=== PATIENT | male | born 1975 | race Caucasian/White ===

== ENCOUNTER 2025-03-03 09:19 | Inpatient (IN) ==
--- NOTE | 2025-03-03 09:37 | Emergency Department Note ---
History of Present Illness General Chief complaint: Chest Pain Stated complaint: CHEST PAIN Time Seen by Provider: 03/03/25 09:26 History of Present Illness Maximum Pain Intensity: 2 This is a 49-year-old male with history of COPD that presents to the emergency department via EMS with complaints of "chest pain". The patient notes earlier today he had gotten out of his vehicle feeling a discomfort in the central chest area that radiated through the shoulders into the bilateral arms. He notes that then he felt like his heart was racing and that was the last thing he remembered as he then woke up on the ground. Patient denies any history of GA or PE. Patient did have recent pulmonary testing in [place] with a history of COPD. He is scheduled for a stress test this coming Thursday but has not had the stress test as of yet. Notes allergies to penicillin, nitro and shellfish. He notes he can tolerate IV contrast for CAT scans without issue. Patient and route received full dose aspirin and total as well as IV morphine. Patient notes that he cannot have nitroglycerin. Home Medications Medication Instructions Recorded Confirmed Type albuterol sulfate 90 mcg/actuation 2 puff inhalation Q6H PRN sob 10/13/23 03/03/25 History aerosol inhaler sumatriptan succinate 6 mg/0.5 mL 6 mg subcut UD PRN cluster 10/13/23 03/03/25 History subcutaneous pen injector headaches atorvastatin 10 mg tablet 10 mg PO HS 03/03/25 03/03/25 History fluticasone fur. 100 mcg-umeclid 1 inh inhalation QAM 03/03/25 03/03/25 History 62.5 mcg-vilant 25 mcg inhalat.powder (Trelegy Ellipta) omeprazole 40 mg capsule,delayed 40 mg PO DAILY #30 caps 03/03/25 Rx release Allergies Allergy/AdvReac Type Severity Reaction Status Date / Time Penicillins Allergy Severe Anaphylaxis Verified 03/03/25 11:57 nitroglycerin Allergy Mild Tachycardia Verified 12/02/23 09:09 shellfish derived Allergy Mild Hives Verified 12/02/23 09:09 Past Med/Surg History Problem List (Updated 03/03/25 @ 18:13 by Jose Candelario DO) Vasovagal syncope Degenerative disc disease, lumbar Abdominal lymphadenopathy Mass of stomach Atypical chest pain Abnormal computed tomography angiography (CTA) Abnormal chest CT (Acute) Syncope (Acute) Chest pain (Acute) Abnormal CT of the abdomen GERD (gastroesophageal reflux disease) Insomnia COPD (chronic obstructive pulmonary disease) Epigastric pain Diarrhea Medical History History of COVID-19 (01/2022) x 13 days, not hospitalized, resolved Insomnia History of cluster headache COPD (chronic obstructive pulmonary disease) Hx of renal calculi Hx of colonic polyp GERD (gastroesophageal reflux disease) Surgical History Hx of colonoscopy with polypectomy Hx of oral surgery dentures H/O hernia repair bilateral inguinal Family History Other Adopted Social History Smoking Status: Current every day smoker Tobacco Type: Cigarettes Age Started Using Tobacco: 9; Cigarettes Per Day: 20; Second Hand Exposure: No; Do You Dip or Chew Tobacco: No; Hx Alcohol Use: No Hx Substance Use: No Preferred Language: Jordanian Communication Ability: Effective [place] Farmer Required: No Beliefs That Will Affect Care: None Current Living Situation: Spouse Current Living Situation Comment: lives with , roommate and person cared for by patient Feels Safe at Home: Yes Safety Concerns: Feels Safe At This Time Assistive Devices: Glasses Review of Systems A total of 10 systems reviewed and were otherwise negative Physical Exam Vital Signs Vital Signs - 24 hr 03/03/25 09:28 03/03/25 09:36 03/03/25 09:55 Temperature 36.7 C Temperature Source Oral Pulse Rate 83 74 Pulse Rate [Left Finger] Respiratory Rate 15 Respiratory Effort / Characteristics Respiratory Depth Blood Pressure 134/97 Blood Pressure [Left Arm] Blood Pressure Mean 109 Blood Pressure Mean [Left Arm] Pulse Oximetry 96 97 Oxygen Delivery Method Room Air Room Air Sepsis Recent Fever Within 48 Hours No Sepsis New/Unexplained Change in Mental Status N/A Sepsis Action Taken by Nursing No Action Required 03/03/25 11:36 03/03/25 11:36 Temperature Temperature Source Pulse Rate Pulse Rate [Left Finger] 76 Respiratory Rate 16 Respiratory Effort / Characteristics Non-Labored Spontaneous Respiratory Depth Normal Blood Pressure Blood Pressure [Left Arm] 142/97 H Blood Pressure Mean Blood Pressure Mean [Left Arm] 112 Pulse Oximetry 98 98 Oxygen Delivery Method Room Air Room Air Sepsis Recent Fever Within 48 Hours Sepsis New/Unexplained Change in Mental Status Sepsis Action Taken by Nursing VITAL SIGNS - Vital signs and nursing notes were reviewed. Stable and afebrile. GENERAL -49-year-old male appearing his stated age who is in no acute distress. Communicates well with provider and answers questions appropriately. SKIN - Without rashes. No meningeal or petechial rash. HEAD - NC/AT. EYES - PERRL with EOMI bilaterally. Sclera anicteric. EARS - No deformities of external structures noted on gross examination bilaterally. NOSE - Midline and without cyanosis. No epistaxis or purulent drainage noted. MOUTH/OROPHARYNX - Without perioral cyanosis. NECK - Neck with FROM. No nuchal rigidity. LUNGS - CTA CARDIAC - RRR ABDOMEN - Abdominal contour normal without pulsations or visible masses. BS normoactive all four quadrants. No tenderness, palpable masses, hepatosplenomegaly, or ascites noted. EXTREMITIES - No clubbing or peripheral cyanosis. +5/5 strength noted in UE/LE bilaterally. NEUROLOGIC - Cranial nerves II through XII grossly intact. PSYCH -alert, oriented and pleasant on exam Course Administered Medications Discontinued Medications Ioversol (Optiray 320 125ml) 118 ml IV ONCE ONE Stop: 03/03/25 10:26 Last Admin: 03/03/25 10:26 Dose: 118 ml Documented By: SWEETIE Ioversol (Optiray 320 100ml) 94 ml IV ONCE ONE Stop: 03/03/25 13:52 Last Admin: 03/03/25 13:52 Dose: 94 ml Documented By: PRISCILLA Medical Decision Making Laboratory Data 03/03/25 09:27 03/03/25 09:27 Lab Results 03/03/25 03/03/25 03/03/25 Range/Units 09:27 09:55 12:05 WBC 6.08 (4.8-10.8) K/ul RBC 4.87 (4.70-6.10) M/uL Hgb 14.8 (14.0-18.0) g/dl POC Hgb 15.6 (14.0-18.0) g/dl Hct 44.1 (42.0-52.0) % POC Hct 46 (42-52) % MCV 90.6 (80.0-100.0) fL MCH 30.4 (25.0-34.0) pg MCHC 33.6 (32.0-36.0) g/dL RDW Std Deviation 44.7 (36.4-46.3) fL RDW Coeff of Cate 13.4 (11.5-14.5) % Plt Count 250 (130-400) K/uL MPV 10.4 (9.4-12.4) fL Immature Gran % (Auto) 0.3 % Neut % (Auto) 55.6 % Lymph % (Auto) 28.0 % Casey % (Auto) 13.7 % Eos % (Auto) 2.1 % Baso % (Auto) 0.3 % Neut # (Auto) 3.38 (1.40-6.50) K/uL Lymph # (Auto) 1.70 (1.20-3.40) K/uL Casey # (Auto) 0.83 H (0.11-0.59) K/uL Eos # (Auto) 0.13 (0.00-0.50) K/uL Baso # (Auto) 0.02 (0.00-0.20) K/uL Immature Gran # (Auto) 0.02 (0.01-0.20) K/uL PT 10.6 (9.0-12.0) Seconds INR 1.0 (0.9-1.1) APTT 27 (21-31) Seconds PTT Ratio 1.0 POC Sodium 141 (135-144) mmol/L Sodium 139 (136-145) mmol/L POC Potassium 3.8 (3.3-5.0) mmol/L Potassium 3.8 (3.5-5.1) mmol/L POC Chloride 105 (101-112) mmol/L Chloride 105 (98-107) mmol/L Carbon Dioxide 26 (21-32) mmol/L POC Total CO2 25 (24-31) mmol/L Anion Gap 8 (3-11) POC Anion Gap 16.0 (16-25) mmol/L POC BUN 8 (7-18) mg/dl BUN 9 (6-23) mg/dl Creatinine 0.97 (0.6-1.4) mg/dl POC Creatinine 1.1 (0.6-1.3) mg/dl Est Cr Clr Drug Dosing 110.7 ml/min eGFR 95.11 BUN/Creatinine Ratio 9.3 L (10-20) Glucose 127 H (70-99(Fasting)) mg/dl POC Glucose (other) 100 H (70-99) mg/dl Calcium 9.7 (8.6-10.3) mg/dl POC Ioniz Calcium Matty 1.19 (1.12-1.32) mmol/l Magnesium 2.2 (1.7-2.4) mg/dl Total Bilirubin 0.5 (0.2-1.0) mg/dl AST 28 (13-39) U/L ALT 40 (7-52) U/L Alkaline Phosphatase 89 (34-104) U/L Troponin I High Sens 3.0 3.7 (0-20) pg/ml Total Protein 8.0 (6.0-8.3) gm/dl Albumin 4.2 (3.4-5.0) gm/dl Globulin 3.8 (2.5-4.0) gm/dl Albumin/Globulin Ratio 1.1 (0.9-2) TSH 2.531 (0.300-4.500) uIu/ml Lyme Disease Screen Positive H (Negative) Lyme Tier 2 IgG Confirm Positive H (Negative) Lyme Tier 2 IgM Confirm Negative (Negative) Imaging Data Radiologist's Impression: Chest CTA 03/03/25 09:36 CT ANGIOGRAM OF THE CHEST CLINICAL HISTORY: Chest pain. Syncope. COMPARISON STUDY: Chest CT dated 05/18/2024. TECHNIQUE: Following the IV administration of 118 cc of Optiray 320, CT angiogram of the chest was performed from the upper abdomen to the thoracic inlet utilizing the pulmonary embolus protocol. Images are reviewed in the axial, sagittal, and coronal planes. 3-D MIPS images are created and assessed. IV contrast was administered without complication. A dose lowering technique was utilized adhering to the principles of ALARA. CT DOSE: 861.27 mGy.cm FINDINGS: Thyroid: Imaged portions of the thyroid gland are normal in size and attenuation. Thoracic aorta: The thoracic aorta is normal in caliber and demonstrates standard 3-vessel arch anatomy. No dissection is seen. Pulmonary vasculature: The pulmonary trunk is normal in caliber. There are no filling defects identified in main, lobar, or segmental pulmonary branches to suggest pulmonary embolus. Heart: The heart is mildly enlarged and without pericardial effusion. Lungs and pleural spaces: There is emphysematous change. The trachea and central airways are clear. No airspace consolidation or pleural effusion is identified. Diffuse peribronchial thickening suggests bronchitis/reactive airway disease. A 4 mm pleural-based nodule in the left lower lobe on image #116 is unchanged. Mediastinum: There is no mediastinal lymphadenopathy. Keren: Clear. Axillae: There is no axillary lymphadenopathy. Upper abdomen: Again seen is a slightly hyperdense 2.7 x 2.3 cm nodule or node along the lesser curvature of the stomach on axial image #40. There is mild surrounding infiltration, as well as adjacent lymph nodes in the surrounding upper abdomen/gastrohepatic space. These measure up to 1.2 cm as seen on images #8, #16, #21, #23, #27, and #35. There is a 3 mm nonobstructing left renal calculus. The liver appears steatotic. Skeletal structures: No lytic or blastic bony lesions are seen. IMPRESSION: 1. There is no evidence of pulmonary embolus in the main, lobar, or segmental pulmonary arteries. 2. There is a 2.7 cm ovoid nodule along the lesser curvature of the stomach with mild surrounding inflammation and several mildly enlarged adjacent upper abdominal lymph nodes. This is highly suspicious for a neoplastic process, and could represent adenopathy or possibly an exophytic gastric lesion such as a GIST. GI evaluation and tissue sampling is recommended. 3. Cardiomegaly and emphysema. 4. No airspace consolidation or pleural effusion is identified. 5. Additional findings as above. ACT 112: Positive. There are findings on this exam that require communication between the performing entity and the patient following Patient Test Result Information Act ([place] Act 112) guidelines. Electronically signed by: Scott Christine M.D. 03/03/2025 10:47 AM MDM Narrative Patient was seen and evaluated as above in room A12a. Review was performed of nursing notes and vital signs. I did review pertinent previous visits and patient history. After obtaining a thorough history and physical examination the above work up was performed. Patient presents to us today with the above symptoms. He is clinically well-appearing and nontoxic on examination. Vital signs are stable. EKG reveals normal sinus rhythm at a rate of 80 bpm. QTc 422. QRS 90. No ST elevation on this rhythm tracing. Options of care were discussed with the patient. IV access was established per labs were drawn. There is no leukocytosis or concerning anemia. Coags normal. No evidence of kidney or liver failure. Troponin x 2 negative. CTA of the chest as above and without evidence of PE. There is however an ovoid nodule noted which will require further workup. Noting the patient's chest pain today with syncopal event to believe that further evaluation and management in the inpatient setting is warranted. Case discussed with the hospitalist service. Please refer to further documentation regarding his stay. Of note, Lyme screen was positive. Will keep the patient on telemetry to evaluate for any blocks. Please refer to further documentation regarding the patient stay. GCS: 15 In the evaluation and treatment of this patient the following differential diagnoses were entertained: GA, PE, dissection, pericarditis, vasovagal syncope, among others. Impression & Plan Chest pain, Syncope, Abnormal chest CT Discharge Plan Visit Data Chief Complaint: Chest Pain Stated Complaint: CHEST PAIN ED Provider: Immanuel Prabhakar ED Midlevel Provider: Jason Garcia Discharge Problem: Chest pain, Syncope, Abnormal chest CT Patient Disposition: Admitted As Inpatient Condition: Good Discharge Instructions Interventions: ED Discharge Assessment Last Done: 03/03/25 13:17
[2025-03-03 10:08] LABS: Hematocrit (blood only) 44.1 % (42.0-52.0); Hemoglobin 14.8 g/dl (14.0-18.0); Immature Granulocytes # (auto) 0.02 K/uL (0.01-0.20); Immature Granulocytes % (auto) 0.3 %; Mean Corpuscular Hemoglobin 30.4 pg (25.0-34.0); Mean Corpuscular Volume 90.6 fL (80.0-100.0); Platelet Count 250 K/uL (130-400); RDW Standard Deviation 44.7 fL (36.4-46.3); Red Blood Count 4.87 M/uL (4.70-6.10); White Blood Count 6.08 K/ul (4.8-10.8)
[2025-03-03 10:26] LABS: Alanine Aminotransferase 40.0 U/L (7-52); Albumin Globulin Ratio 1.1 (0.9-2); Albumin Level 4.2 gm/dl (3.4-5.0); Alkaline Phosphatase 89.0 U/L (34-104); Anion Gap 8.0 (3-11); Bilirubin,Total 0.5 mg/dl (0.2-1.0); Blood Urea Nitrogen 9.0 mg/dl (6-23); Calcium 9.7 mg/dl (8.6-10.3); Carbon Dioxide 26.0 mmol/L (21-32); Chloride 105.0 mmol/L (98-107); Creatinine Clr Calc Pharmacy 110.7 ml/min; Globulin 3.8 gm/dl (2.5-4.0); Glucose 127.0 mg/dl (70-99(Fasting)); Magnesium 2.2 mg/dl (1.7-2.4); Potassium 3.8 mmol/L (3.5-5.1); Sodium 139.0 mmol/L (136-145); Total Protein 8.0 gm/dl (6.0-8.3)
[2025-03-03] MEDS: OPTIRAY 320 125ml IV ONE (10:26)
[2025-03-03 10:37] LABS: INR 1.0 (0.9-1.1); Partial Thromboplastin Time 27 Seconds (21-31); Prothrombin Time 10.6 Seconds (9.0-12.0)
[2025-03-03 10:41] LABS: Thyroid Stimulating Hormone 2.531 uIu/ml (0.300-4.500)
--- NOTE | 2025-03-03 10:48 | CT Scan Report ---
CT ANGIOGRAM OF THE CHEST CLINICAL HISTORY: Chest pain. Syncope. COMPARISON STUDY: Chest CT dated 05/18/2024. TECHNIQUE: Following the IV administration of 118 cc of Optiray 320, CT angiogram of the chest was pe rformed from the upper abdomen to the thoracic inlet utilizing the pulmonary embolus protocol. Images are reviewed in the axial, sagittal, and coronal planes. 3-D MIPS images are created and assessed. I V contrast was administered without complication. A dose lowering technique was utilized adhering to the principles of ALARA. CT DOSE: 861.27 mGy.cm FINDINGS: Thyroid: Imaged portions of the thyroid gland are normal in size and attenuation. Thoracic aorta: The thoracic aorta is normal in caliber and demonstrates standard 3-vessel arch anato my. No dissection is seen. Pulmonary vasculature: The pulmonary trunk is normal in caliber. There are no filling defects identif ied in main, lobar, or segmental pulmonary branches to suggest pulmonary embolus. Heart: The heart is mildly enlarged and without pericardial effusion. Lungs and pleural spaces: There is emphysematous change. The trachea and central airways are clear. N o airspace consolidation or pleural effusion is identified. Diffuse peribronchial thickening suggests bronchitis/reactive airway disease. A 4 mm pleural-based nodule in the left lower lobe on image #116 is unchanged. Mediastinum: There is no mediastinal lymphadenopathy. Keren: Clear. Axillae: There is no axillary lymphadenopathy. Upper abdomen: Again seen is a slightly hyperdense 2.7 x 2.3 cm nodule or node along the lesser curva ture of the stomach on axial image #40. There is mild surrounding infiltration, as well as adjacent l ymph nodes in the surrounding upper abdomen/gastrohepatic space. These measure up to 1.2 cm as seen o n images #8, #16, #21, #23, #27, and #35. There is a 3 mm nonobstructing left renal calculus. The leanne er appears steatotic. Skeletal structures: No lytic or blastic bony lesions are seen. IMPRESSION: 1. There is no evidence of pulmonary embolus in the main, lobar, or segmental pulmonary arteries. 2. There is a 2.7 cm ovoid nodule along the lesser curvature of the stomach with mild surrounding inf lammation and several mildly enlarged adjacent upper abdominal lymph nodes. This is highly suspicious for a neoplastic process, and could represent adenopathy or possibly an exophytic gastric lesion suc h as a GIST. GI evaluation and tissue sampling is recommended. 3. Cardiomegaly and emphysema. 4. No airspace consolidation or pleural effusion is identified. 5. Additional findings as above. ACT 112: Positive. There are findings on this exam that require communication between the performing entity and the patient following Patient Test Result Information Act [place] Act 112) guidelines. Electronically signed by: Scott Christine M.D. 03/03/2025 10:47 AM
[2025-03-03 11:01] LABS: Lyme Screen Rflx Confirmation Positive (Negative)
--- NOTE | 2025-03-03 11:31 | History & Physical Report ---
<Statement entered by Jose Candelario, DO - 03/03/25 14:24> I have seen and examined the patient and have discussed the case with the advance practice provider. I have reviewed the advanced practitioner's documentation, and I agree with, and take responsibility for that plan of care. Patient has been dealing with epigastric tenderness, fullness, discomfort for a long period of time. Has had extensive workup at multiple health systems in the past including EGD, colonoscopy, HIDA scan. Today's episode seems much more consistent with a vagal syncope. Initial troponin negative, decreasing likelihood of acute coronary syndrome. Reviewed pathology from lymph node biopsy, was indeterminate, reported history of colon cancer many years ago. Concern findings and and around stomach may be a neoplasm. May also be the explanation for vagal response Initial plan of care as outlined below I spent a total of 22 minutes coordinating, documenting, and providing care for this patient excluding time spent by another provider/QHP. Date of Service March 03, 2025 Assessment & Plan (1) Chest pain: (2) Syncope: (3) Abnormal computed tomography angiography (CTA): Plan Patient is a 49y/o M with PMHx significant for HLD, COPD, history of colon CA s /p immunotherapy in his early 20s, tobacco use and cluster headaches who presented to the ED via EMS for further evaluation of chest pain and syncope. Chest pain Syncope and collapse Developed acute left-sided chest pain while driving to client's house for work. Arrived at client's house, stepped out of car and then developed intense shooting pain across his entire chest wall and down both arms before ultimately passing out. Arouse within minutes. Client's family called EMS. S/p 324mg ASA, IV morphine en route to ED. Still with some left-sided chest tightness in ED but greatly improved from prior. EKG in ED revealed NSR with no acute ST changes. HS-trop x 2 negative. TTE ordered and pending. Orthostatics negative in ED. Will keep on telemetry monitoring for now. No known prior cardiac history. On statin therapy for HLD, will check lipid panel in AM. Curious if chest pain could possibly be referred pain due to the below finding. Feel currently that syncopal event was a vasovagal reaction 2/2 pain. Abnormal chest CTA finding Chest CTA performed in the ED was negative for PE but incidentally revealed a 2.7 cm ovoid nodule along the lesser curvature of the stomach with mild surrounding inflammation and several mildly enlarged adjacent upper abdominal lymph nodes highly suspicious for a neoplastic process. Patient previously had an abnormal CTAP in November 2023 which revealed a 21 x 19 mm gastrohepatic nodule within mild surrounding inflammatory change abutting the lesser curvature of the stomach and liver and a single prominent distal right periaortic lymph node measuring 12 x 7 mm. -He underwent EUS and EGD performed by Dr. Anton on 11/30/2023. -EUS revealed a few enlarged lymph nodes in the perigastric region. Fine needle biopsy was performed which revealed atypical cells in a lymphoplasmacytic background. -Flow cytometry was performed which demonstrated no evidence of monotypic or phenotypically aberrant lymphoid population consistent with a benign or reactive lymphoid population. -EGD revealed LA grade A reflux esophagitis with no bleeding (biopsied). -EGD biopsy showed squamous and columnar mucosa with active chronic gastroesophagitis, negative for intestinal metaplasia. According to documentation from Dr. Anton in a telephone encounter from 12/08/2023 per [facility] records, the findings were indeterminate and a neoplastic such as a plasma cell proliferation or low-grade epithelioid proliferation, could not be entirely excluded. Dr. Anton recommended laparoscopic excision of the lymph node to get an accurate pathology. This was never completed. Colonoscopy on 12/02/2023 revealed internal hemorrhoids but was otherwise grossly unremarkable with negative colonic biopsy. Patient endorses experiencing epigastric and right upper quadrant abdominal pain for almost 2 years. This has never subsided. He has multiple siblings who have been diagnosed with cancer including colon, hepatic and stomach cancer. Appreciate GI consult for further evaluation of this. Will tentatively keep NPO at [place] for possible EGD evaluation tomorrow. Possibly need to get general surgery involved for laparoscopic biopsy as previously recommended by Dr. Anton. Dysphagia Patient describes sensation of "food getting stuck" over the past several months. Tolerates soft, easy to chew diet at home. Appreciate [employer] INSTRUCTIONAL AIDE consult for possible swallow study evaluation. Aspiration precautions. Positive Lyme disease screen Feel this is not an acute infection, likely reflective of past infection. Patient not exhibiting symptoms of such except for syncope would could be related to possible underlying heart block but feel it was most likely vasovagal in nature. Will keep on telemetry monitoring for now as per above. HLD Continue statin therapy as per above. Review lipid panel in AM. COPD Follows with egg sorter in [place]. Recently had PFTs completed earlier this week. Continue Trelegy. History of colon CA Per patient's recollection. S/p immunotherapy. No prior chemotherapy, radiation or surgery for this. DVT Prophylaxis: SCDs/TEDs only for now Code Status: FULL CODE PCP: Donny Schmidt MD Disposition: Admit to med/telemetry Patient seen in collaboration with Dr. Candelario. Please see addendum. I spent a total of 80 minutes coordinating, documenting, and providing care for this patient excluding time spent in the performance of separately billed services or time spent by another provider/QHP. This included personally reviewing all current laboratories and imaging studies, medical reconciliation, outpatient chart review and discussion with specialists. This chart was completed in part utilizing Speech Voice Recognition Software. Grammatical errors, random word insertions, pronoun errors, and incomplete sentences are an occasional consequence of this system due to software limitations, ambient noise, and hardware issues. Any formal questions or concerns about the content, text, or information contained within the body of this dictation should be directly addressed to the provider for clarification. History of Present Illness Chief Complaint: Chest pain, syncope Primary Care Provider: oDnny Schmidt MD Patient is a 49y/o M with PMHx significant for HLD, COPD, history of colon CA s/p immunotherapy in his early 20s, tobacco use and cluster headaches who presented to the ED via EMS for further evaluation of chest pain and syncope. History obtained from the patient, discussion with ED provider and associated chart review. 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 Was driving to a client's home this morning when he developed acute onset of chest pain, primarily in the left side of his chest and described as sharp in nature. He was able to pull into his client's driveway safely but then stepped out of the car and his chest pain suddenly worsened. The pain started to radiate across his entire chest wall and down both arms. The intensity of the pain was severe and he unfortunately ended up passing out. No reported head strike. EMS was called by his client's family. It took him several minutes to arouse per witnesses and EMS. Received 324mg ASA and IV morphine en route to the ED. EKG in ED with NSR, no acute ST changes. Initial troponin negative. Vital signs grossly unremarkable. Upon evaluation in the ED, patient describes left-sided chest tightness. Feels much improved when compared to prior. Denies any SOB. No known cardiac history. On statin therapy for HLD. Had chest CTA performed in the ED which was negative for PE but incidentally revealed a 2.7 cm ovoid nodule along the lesser curvature of the stomach with mild surrounding inflammation and several mildly enlarged adjacent upper abdominal lymph nodes highly suspicious for a neoplastic process. Patient previously had an abnormal CTAP in November 2023 which revealed a 21 x 19 mm gastrohepatic nodule within mild surrounding inflammatory change abutting the lesser curvature of the stomach and liver and a single prominent distal right periaortic lymph node measuring 12 x 7 mm. He underwent EUS and EGD performed by Dr. Anton on 11/30/2023. EUS revealed a few enlarged lymph nodes in the perigastric region. Fine needle biopsy was performed which revealed atypical cells in a lymphoplasmacytic background. Flow cytometry was performed which demonstrated no evidence of monotypic or phenotypically aberrant lymphoid population consistent with a benign or reactive lymphoid population. EGD revealed LA grade A reflux esophagitis with no bleeding (biopsied). Biopsy karen wed squamous and columnar mucosa with active chronic gastroesophagitis, negative for intestinal metaplasia. According to documentation from Dr. Anton in a telephone encounter from 12/08/2023 per [facility] records, the findings were indeterminate and a neoplastic such as a plasma cell proliferation or low-grade epithelioid proliferation, could not be entirely excluded. Dr. Anton recommended laparoscopic excision of the lymph node to get an accurate pathology. This was never completed. Had a colonscopy on 12/02/2023 which revealed internal hemorrhoids but was otherwise grossly unremarkable with negative colonic biopsy. Patient endorses experiencing epigastric and right upper quadrant abdominal pain for almost 2 years. This has never subsided. He has a history of colon cancer in his 20s per his recollection. Took immunotherapy; no abdominal surgery, chemotherapy or radiation therapy for this. He has multiple siblings who have been diagnosed with cancer including colon, hepatic and stomach cancer. Allergies Allergy/AdvReac Type Severity Reaction Status Date / Time Penicillins Allergy Severe Anaphylaxis Verified 03/03/25 11:57 nitroglycerin Allergy Mild Tachycardia Verified 12/02/23 09:09 shellfish derived Allergy Mild Hives Verified 12/02/23 09:09 Home Medications Medication Instructions Recorded Confirmed Type albuterol sulfate 90 mcg/actuation 2 puff inhalation Q6H PRN sob 10/13/23 03/03/25 History aerosol inhaler sumatriptan succinate 6 mg/0.5 mL 6 mg subcut UD PRN cluster 10/13/23 03/03/25 History subcutaneous pen injector headaches atorvastatin 10 mg tablet 10 mg PO HS 03/03/25 03/03/25 History fluticasone fur. 100 mcg-umeclid 1 inh inhalation QAM 03/03/25 03/03/25 History 62.5 mcg-vilant 25 mcg inhalat.powder (Trelegy Ellipta) Past Med/Surg History Problem List (Updated 03/03/25 @ 12:35 by Gabriela Cruz PA-C) Abnormal computed tomography angiography (CTA) Abnormal chest CT (Acute) Syncope (Acute) Chest pain (Acute) Abnormal CT of the abdomen GERD (gastroesophageal reflux disease) Insomnia COPD (chronic obstructive pulmonary disease) Epigastric pain Diarrhea Medical History History of COVID-19 (01/2022) x 13 days, not hospitalized, resolved Insomnia History of cluster headache COPD (chronic obstructive pulmonary disease) Hx of renal calculi Hx of colonic polyp GERD (gastroesophageal reflux disease) Surgical History Hx of colonoscopy with polypectomy Hx of oral surgery dentures H/O hernia repair bilateral inguinal Family History Other Adopted Social History Smoking Status: Current every day smoker Tobacco Type: Cigarettes Age Started Using Tobacco: 9; Cigarettes Per Day: 5 cigs / week (Advised); Second Hand Exposure: No; Do You Dip or Chew Tobacco: No; Hx Alcohol Use: No Hx Substance Use: No Preferred Language: Singaporean Communication Ability: Effective 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 Physical Exam Physical Exam: General: WD/WN, vitals as above, NAD, sitting up in bed, pleasant, conversing appropriately. A+Ox3. HEENT: Normocephalic, atraumatic. External ear and nose normal, moist mucous membranes. Respiratory: Normal respiratory effort, CTAB, no wheeze/rales/rhonchi. No accessory muscle use. Cardiovascular: Regular rate, rhythm, normal peripheral pulses, no BLE edema. Abdomen/GI: Normal bowel sounds, soft, mild distention, + mild TTP in epigastric region and RUQ. Extremities/Musculoskeletal: No cyanosis or clubbing, extremities motor strength intact, moves all extremities. Neurologic: No overt focal deficits, CN's II-XI not formally tested but appear grossly intact bilaterally. Results & Data Results & Data Vital Signs (Past 12 Hours) Vital Signs Temp Pulse Resp BP Pulse Ox O2 Del Method 03/03/25 09:55 74 03/03/25 09:36 97 Room Air 03/03/25 09:28 36.7 C 83 15 134/97 96 Room Air Laboratory Results Short CBC 03/03/25 Range/Units 09:27 WBC 6.08 (4.8-10.8) K/ul Hgb 14.8 (14.0-18.0) g/dl Hct 44.1 (42.0-52.0) % Plt Count 250 (130-400) K/uL BMP 03/03/25 09:27 Sodium 139 Potassium 3.8 Chloride 105 Carbon Dioxide 26 BUN 9 Creatinine 0.97 Glucose 127 H Calcium 9.7 Liver Function 03/03/25 Range/Units 09:27 Total Bilirubin 0.5 (0.2-1.0) mg/dl AST 28 (13-39) U/L ALT 40 (7-52) U/L Alkaline Phosphatase 89 (34-104) U/L Albumin 4.2 (3.4-5.0) gm/dl Diagnostic Findings Chest CTA 03/03/25 09:36 CT ANGIOGRAM OF THE CHEST CLINICAL HISTORY: Chest pain. Syncope. COMPARISON STUDY: Chest CT dated 05/18/2024. TECHNIQUE: Following the IV administration of 118 cc of Optiray 320, CT angiogram of the chest was performed from the upper abdomen to the thoracic inlet utilizing the pulmonary embolus protocol. Images are reviewed in the axial, sagittal, and coronal planes. 3-D MIPS images are created and assessed. IV contrast was administered without complication. A dose lowering technique was utilized adhering to the principles of ALARA. CT DOSE: 861.27 mGy.cm FINDINGS: Thyroid: Imaged portions of the thyroid gland are normal in size and attenuation. Thoracic aorta: The thoracic aorta is normal in caliber and demonstrates standard 3-vessel arch anatomy. No dissection is seen. Pulmonary vasculature: The pulmonary trunk is normal in caliber. There are no filling defects identified in main, lobar, or segmental pulmonary branches to suggest pulmonary embolus. Heart: The heart is mildly enlarged and without pericardial effusion. Lungs and pleural spaces: There is emphysematous change. The trachea and central airways are clear. No airspace consolidation or pleural effusion is identified. Diffuse peribronchial thickening suggests bronchitis/reactive airway disease. A 4 mm pleural-based nodule in the left lower lobe on image #116 is unchanged. Mediastinum: There is no mediastinal lymphadenopathy. Keren: Clear. Axillae: There is no axillary lymphadenopathy. Upper abdomen: Again seen is a slightly hyperdense 2.7 x 2.3 cm nodule or node along the lesser curvature of the stomach on axial image #40. There is mild surrounding infiltration, as well as adjacent lymph nodes in the surrounding upper abdomen/gastrohepatic space. These measure up to 1.2 cm as seen on images #8, #16, #21, #23, #27, and #35. There is a 3 mm nonobstructing left renal calculus. The liver appears steatotic. Skeletal structures: No lytic or blastic bony lesions are seen. IMPRESSION: 1. There is no evidence of pulmonary embolus in the main, lobar, or segmental pulmonary arteries. 2. There is a 2.7 cm ovoid nodule along the lesser curvature of the stomach with mild surrounding inflammation and several mildly enlarged adjacent upper abdominal lymph nodes. This is highly suspicious for a neoplastic process, and could represent adenopathy or possibly an exophytic gastric lesion such as a GIST. GI evaluation and tissue sampling is recommended. 3. Cardiomegaly and emphysema. 4. No airspace consolidation or pleural effusion is identified. 5. Additional findings as above. ACT 112: Positive. There are findings on this exam that require communication between the performing entity and the patient following Patient Test Result Information Act ([place] Act 112) guidelines. Electronically signed by: Scott Christine M.D. 03/03/2025 10:47 AM Medications Administered Discontinued Medications Ioversol (Optiray 320 125ml) 118 ml IV ONCE ONE Stop: 03/03/25 10:26 Last Admin: 03/03/25 10:26 Dose: 118 ml Documented By: SWEETIE
[2025-03-03 12:39] LABS: Lyme Ab IgG 2nd Tier Confirm Positive (Negative)
[2025-03-03 12:40] LABS: Lyme Ab IgM 2nd Tier Confirm Negative (Negative)
[2025-03-03] MEDS: OPTIRAY 320 100ml IV ONE (13:52)
[2025-03-03] MEDS ORDERED: MAGNESIUM HYDROXIDE SUSP 30 ML UDC PO PRN (14:05)
[2025-03-03] MEDS ORDERED: POLYETHYLENE (MIRALAX) 17 GM PACK PO PRN (14:05)
[2025-03-03] MEDS ORDERED: ONDANSETRON INJ 2 MG/ML 2 ML VIAL IV PRN (14:05)
[2025-03-03] MEDS ORDERED: ACETAMINOPHEN 325 MG TAB PO PRN (14:05)
--- NOTE | 2025-03-03 14:21 | CT Scan Report ---
CT SCAN OF THE ABDOMEN AND PELVIS WITH IV CONTRAST CLINICAL HISTORY: Possible gastric neoplasm on chest CT. COMPARISON STUDY: Chest CT performed earlier today. CT of the abdomen and pelvis August 27, 2024. TECHNIQUE: Following the IV administration of 94 cc of Optiray 320, CT scan of the abdomen and pelvi s is performed from the lung bases to the proximal femora. Images are reviewed in the axial, sagittal , and coronal planes. IV contrast was administered without complication. A dose lowering technique wa s utilized adhering to the principles of ALARA. CT DOSE: 1321.59 mGy.cm FINDINGS: No pneumatosis, free air or portal venous gas is present. There are no hepatic lesions. Pro bable hepatic steatosis. Spleen, adrenal glands, kidneys and pancreas are unremarkable. Note is made of a 2.6 cm enhancing ovoid nodule along the lesser curvature of the stomach with mild adjacent stran ding on image 75 of 417. There are numerous adjacent prominent gastrohepatic ligament lymph nodes marily t measure up to 1.1 x 0.9 cm. Prominent peripancreatic lymph nodes and lymph nodes adjacent to the ce liac axis are also noted. There is no evidence for a bowel obstruction. The caliber and wall thicknes s of small and large bowel are normal. The appendix is normal. No pelvic lymphadenopathy. Incidental note is made of excreted contrast from recent contrast-enhanced CT. There are no suspicious lesions w ithin visualized skeletal structures. IMPRESSION: 1. 2.6 cm enhancing nodule along the lesser curvature of the stomach with mild adjacent stranding and numerous adjacent mildly enlarged lymph nodes. A neoplastic etiology such as lymphoma or a GI stroma l tumor cannot be excluded. GI consultation is recommended for consideration for tissue sampling. 2. No acute process within the abdomen or pelvis. 3. No pelvic lymphadenopathy. 4. Probable hepatic steatosis. ACT 112: Negative or not required by law. Electronically signed by: Jaun Craig M.D. 03/03/2025 2:20 PM
--- NOTE | 2025-03-03 14:34 | Gastrointestinal Consultation ---
Date of Consultation March 03, 2025 Assessment & Plan (1) Abnormal CT of the abdomen: 49 year old male with history of COPD, cluster headaches, GERD, chronic diarrhea and others below who is admitted through the ED w/ chest pain, syncope - GI was asked to evaluate for abnormal imaging. 2.6 cm enhancing nodule along the lesser curvature of the stomach with mild adjacent stranding and numerous adjacent mildly enlarged lymph nodes Continued work up for syncope. Recommend OP EGD/EUS. Will discuss further w/ attending I spent a total of 60 minutes on the date of service in review of patient's record, and previously obtained information in person and appropriate medical visit, discussion and education of plan, with patient and/or caregiver, placing orders for tests/referral/procedures as medically necessary and documentation of pertinent clinical information in patient's medical records for their visit today. 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 Chronic abdominal pain. Syncopal episode today. Did not note that his abdominal pain was worsened at that time. Cardiac workup negative. Just tumor 2.6. Typically okay if under 6 cm. However it is enlarging and should undergo further workup. Recommend repeat endoscopic ultrasound and biopsy. This is not currently done at [facility]. Recommend transferred back to Dr. Ibrahim for this procedure. 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 Pt was seen and evaluated, chart reviewed. Family at bedside. Reports ongoing, chronic GI symptoms which have been worsening. Notes chronic, constant upper abd pain/pressure located in epigastric area. This can radiate to his chest and RUQ. There is no nausea. There is associated bloating/fullness. He reports painful/difficutly swallowing. No GERD. He notes he occasionally will have food sticking in his esophagus. Weight gain. Chronic loose stools. CTAP 2024: 2.6 cm enhancing nodule along the lesser curvature of the stomach with mild adjacent stranding and numerous adjacent mildly enlarged lymph nodes. A neoplastic etiology such as lymphoma or a GI stromal tumor cannot be excluded. GI consultation is recommended for consideration for tissue sampling. CTAP 2024: The liver is enlarged and of diffuse decreased attenuation which may be due to fatty infiltration.The gallbladder is contracted. No calcified gallstones are seen. CTAP 2024: Duodenal mucosa appears slightly hyperemic. Potentially related to the phase of contrast however mild duodenitis could cause a similar appearance. CTAP 2023: There is a 21 x 19 mm gastrohepatic nodule within mild surrounding inflammatory change. This abuts the lesser curvature of the stomach and liver. This is indeterminate but could represent an enlarged lymph node, an exophytic gastric tumor, or possibly a splenule. GI consultation recommended for possible biopsy. Pathology 2023: inconclusive EUS 2023: There was no sign of significant pathology in the ampulla. - There was no sign of significant pathology in the common bile duct. - There was no evidence of significant pathology in the visualized portion of the liver. - There was no sign of significant pathology in the entire pancreas. - A few enlarged lymph nodes were visualized in the perigastric region. Fine needle biopsy performed. EGD 2023: LA Grade A reflux esophagitis with no bleeding. Biopsied. - Normal stomach. - Normal duodenal bulb and second portion of the duodenum. Colonoscopy 2023: The perianal examination was normal. - Internal hemorrhoids were found during retroflexion. The hemorrhoids were small. - Biopsies for histology were taken with a cold forceps from the entire colon for evaluation of microscopic colitis. - Fluid aspiration for bacterial cultures and Clostridium difficile was performed in the entire colon. Allergies Allergy/AdvReac Type Severity Reaction Status Date / Time Penicillins Allergy Severe Anaphylaxis Verified 03/03/25 11:57 nitroglycerin Allergy Mild Tachycardia Verified 12/02/23 09:09 shellfish derived Allergy Mild Hives Verified 12/02/23 09:09 Home Medications Medication Instructions Recorded Confirmed Type albuterol sulfate 90 mcg/actuation 2 puff inhalation Q6H PRN sob 10/13/23 03/03/25 History aerosol inhaler sumatriptan succinate 6 mg/0.5 mL 6 mg subcut UD PRN cluster 10/13/23 03/03/25 History subcutaneous pen injector headaches atorvastatin 10 mg tablet 10 mg PO HS 03/03/25 03/03/25 History fluticasone fur. 100 mcg-umeclid 1 inh inhalation QAM 03/03/25 03/03/25 History 62.5 mcg-vilant 25 mcg inhalat.powder (Trelegy Ellipta) omeprazole 40 mg capsule,delayed 40 mg PO DAILY #30 caps 03/03/25 Rx release Patient History Medical History History of COVID-19 (01/2022) x 13 days, not hospitalized, resolved Insomnia History of cluster headache COPD (chronic obstructive pulmonary disease) Hx of renal calculi Hx of colonic polyp GERD (gastroesophageal reflux disease) Surgical History Hx of colonoscopy with polypectomy Hx of oral surgery dentures H/O hernia repair bilateral inguinal Family History Other Adopted Social History Smoking Status: Current every day smoker Tobacco Type: Cigarettes Age Started Using Tobacco: 9; Cigarettes Per Day: 20; Second Hand Exposure: No; Do You Dip or Chew Tobacco: No; Hx Alcohol Use: No Hx Substance Use: No Preferred Language: Tunisian Communication Ability: Effective Smoking Pipe Maker Required: No Beliefs That Will Affect Care: None Current Living Situation: Spouse Current Living Situation Comment: lives with , roommate and person cared for by patient Feels Safe at Home: Yes Safety Concerns: Feels Safe At This Time Assistive Devices: Glasses Review of Systems Review of Systems: All other findings negative except as noted in HPI. Physical Exam Constitutional: WD/WN, vitals as above Respiratory: normal respiratory effort Cardiovascular: Rate/Rhythm: regular rate Gastrointestinal (Abdomen): Percussion/Palpation: + abdomen tender and abdomen soft; no guarding and abdomen not rigid Skin: no rashes, warm and dry Results & Data Vital Signs (Past 12 Hours) Vital Signs Temp Pulse Pulse Resp BP BP Pulse Ox 03/03/25 13:17 03/03/25 12:47 77 18 128/95 97 03/03/25 11:36 98 03/03/25 11:36 76 16 142/97 H 98 03/03/25 09:55 74 03/03/25 09:36 97 03/03/25 09:28 98.1 F 83 15 134/97 96 O2 Del Method 03/03/25 13:17 Room Air 03/03/25 12:47 Room Air 03/03/25 11:36 Room Air 03/03/25 11:36 Room Air 03/03/25 09:55 03/03/25 09:36 Room Air 03/03/25 09:28 Room Air Laboratory Results 03/03/25 03/03/25 03/03/25 Range/Units 12:05 09:55 09:27 WBC 6.08 (4.8-10.8) K/ul RBC 4.87 (4.70-6.10) M/uL Hgb 14.8 (14.0-18.0) g/dl POC Hgb 15.6 (14.0-18.0) g/dl Hct 44.1 (42.0-52.0) % POC Hct 46 (42-52) % MCV 90.6 (80.0-100.0) fL MCH 30.4 (25.0-34.0) pg MCHC 33.6 (32.0-36.0) g/dL RDW Std Deviation 44.7 (36.4-46.3) fL RDW Coeff of Cate 13.4 (11.5-14.5) % Plt Count 250 (130-400) K/uL MPV 10.4 (9.4-12.4) fL Immature Gran % (Auto) 0.3 % Neut % (Auto) 55.6 % Lymph % (Auto) 28.0 % Spink % (Auto) 13.7 % Eos % (Auto) 2.1 % Baso % (Auto) 0.3 % Neut # (Auto) 3.38 (1.40-6.50) K/uL Lymph # (Auto) 1.70 (1.20-3.40) K/uL Spink # (Auto) 0.83 H (0.11-0.59) K/uL Eos # (Auto) 0.13 (0.00-0.50) K/uL Baso # (Auto) 0.02 (0.00-0.20) K/uL Immature Gran # (Auto) 0.02 (0.01-0.20) K/uL PT 10.6 (9.0-12.0) Seconds INR 1.0 (0.9-1.1) APTT 27 (21-31) Seconds PTT Ratio 1.0 POC Sodium 141 (135-144) mmol/L Sodium 139 (136-145) mmol/L POC Potassium 3.8 (3.3-5.0) mmol/L Potassium 3.8 (3.5-5.1) mmol/L POC Chloride 105 (101-112) mmol/L Chloride 105 (98-107) mmol/L Carbon Dioxide 26 (21-32) mmol/L POC Total CO2 25 (24-31) mmol/L Anion Gap 8 (3-11) POC Anion Gap 16.0 (16-25) mmol/L POC BUN 8 (7-18) mg/dl BUN 9 (6-23) mg/dl Creatinine 0.97 (0.6-1.4) mg/dl POC Creatinine 1.1 (0.6-1.3) mg/dl Est Cr Clr Drug Dosing 110.7 ml/min eGFR 95.11 BUN/Creatinine Ratio 9.3 L (10-20) Glucose 127 H (70-99(Fasting)) mg/dl POC Glucose (other) 100 H (70-99) mg/dl Calcium 9.7 (8.6-10.3) mg/dl POC Ioniz Calcium Matty 1.19 (1.12-1.32) mmol/l Magnesium 2.2 (1.7-2.4) mg/dl Total Bilirubin 0.5 (0.2-1.0) mg/dl AST 28 (13-39) U/L ALT 40 (7-52) U/L Alkaline Phosphatase 89 (34-104) U/L Troponin I High Sens 3.7 3.0 (0-20) pg/ml Total Protein 8.0 (6.0-8.3) gm/dl Albumin 4.2 (3.4-5.0) gm/dl Globulin 3.8 (2.5-4.0) gm/dl Albumin/Globulin Ratio 1.1 (0.9-2) TSH 2.531 (0.300-4.500) uIu/ml Lyme Disease Screen Positive H (Negative) Lyme Tier 2 IgG Confirm Positive H (Negative) Lyme Tier 2 IgM Confirm Negative (Negative) PG Care Time/CCT Total # of Minutes Spent Total Time Spent with Patient: Total time spent is greater than 50% in coordination of care (as documented) at patient's floor/unit and/or counseling patient: Coding Level of Care Code None Diagnoses Abnormal CT of the abdomen R93.5
--- NOTE | 2025-03-03 18:18 | Discharge Summary ---
Discharge Summary Date of Service March 03, 2025 Principal Dx & Hospital Course #1 = Principal Diagnosis (1) Atypical chest pain: (2) Vasovagal syncope: (3) Mass of stomach: (4) Abdominal lymphadenopathy: (5) GERD (gastroesophageal reflux disease): (6) COPD (chronic obstructive pulmonary disease): (7) Degenerative disc disease, lumbar: Plan Patient 49-year-old gentleman presented to the emergency room after a syncopal e vent. Evaluation in the emergency room was significant for possible mass in the stomach with some surrounding lymphadenopathy. Patient was referred for admission. Patient was monitored in the hospital. There was no arrhythmias noted on telemetry monitoring. Troponins were negative times all sets. Echocardiogram was performed and showed a normal ejection fraction with no significant wall motion abnormalities. Patient had no further lightheadedness or dizziness or presyncopal symptoms. His vital signs are stable. On imaging patient had findings of lymphadenopathy and a stomach mass. Patient underwent dedicated CT of the abdomen and pelvis which confirmed the stomach mass and lymphadenopathy. GI consultation was obtained. Patient was seen by GI who recommended outpatient EGD with EUS and biopsy. Patient reported he had this done about 1 year ago with pathology being indeterminate. This was confirmed on review of outside EMR. It was recommended that he have this performed again and will be referred to outpatient GI who performs this procedure. He has seen Dr. Vero Baum in the past. At the time of discharge patient was at his baseline chronic abdominal discomfort which he states he has had for at least 2 years. He is requesting go home. He ruled out for any acute coronary event as a cause of his syncope, his symptoms and history seem much more consistent with a vagal syncope. Will give a trial of some PPI for his chronic GI pain and a follow-up with his outpatient providers. Notes For Next Care Provider Needs to follow-up with outpatient GI for biopsy If GI biopsies still indeterminant may need referral to surgeon for laparoscopic biopsy of lymph nodes or stomach Medication Changes From Visit Omeprazole Admission HPI Per Admitting Provider Patient is a 49y/o M with PMHx significant for HLD, COPD, history of colon CA s/p immunotherapy in his early 20s, tobacco use and cluster headaches who presented to the ED via EMS for further evaluation of chest pain and syncope. History obtained from the patient, discussion with ED provider and associated chart review. 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 Was driving to a client's home this morning when he developed acute onset of chest pain, primarily in the left side of his chest and described as sharp in nature. He was able to pull into his client's driveway safely but then stepped out of the car and his chest pain suddenly worsened. The pain started to radiate across his entire chest wall and down both arms. The intensity of the pain was severe and he unfortunately ended up passing out. No reported head strike. EMS was called by his client's family. It took him several minutes to arouse per witnesses and EMS. Received 324mg ASA and IV morphine en route to the ED. EKG in ED with NSR, no acute ST changes. Initial troponin negative. Vital signs grossly unremarkable. Upon evaluation in the ED, patient describes left-sided chest tightness. Feels much improved when compared to prior. Denies any SOB. No known cardiac history. On statin therapy for HLD. Had chest CTA performed in the ED which was negative for PE but incidentally revealed a 2.7 cm ovoid nodule along the lesser curvature of the stomach with mild surrounding inflammation and several mildly enlarged adjacent upper abdominal lymph nodes highly suspicious for a neoplastic process. Patient previously had an abnormal CTAP in November 2023 which revealed a 21 x 19 mm gastrohepatic nodule within mild surrounding inflammatory change abutting the lesser curvature of the stomach and liver and a single prominent distal right periaortic lymph node measuring 12 x 7 mm. He underwent EUS and EGD performed by Dr. Anton on 11/30/2023. EUS revealed a few enlarged lymph nodes in the perigastric region. Fine needle biopsy was performed which revealed atypical cells in a lymphoplasmacytic background. Flow cytometry was performed which demonstrated no evidence of monotypic or phenotypically aberrant lymphoid population consistent with a benign or reactive lymphoid population. EGD revealed LA grade A reflux esophagitis with no bleeding (biopsied). Biopsy showed squamous and columnar mucosa with active chronic gastroesophagitis, negative for intestinal metaplasia. According to documentation from Dr. Anton in a telephone encounter from 12/08/2023 per [facility] records, the findings were indeterminate and a neoplastic such as a plasma cell proliferation or low-grade epithelioid proliferation, could not be entirely excluded. Dr. Anton recommended laparoscopic excision of the lymph node to get an accurate pathology. This was never completed. Had a colonscopy on 12/02/2023 which revealed internal hemorrhoids but was otherwise grossly unremarkable with negative colonic biopsy. Patient endorses experiencing epigastric and right upper quadrant abdominal pain for almost 2 years. This has never subsided. He has a history of colon cancer in his 20s per his recollection. Took immunotherapy; no abdominal surgery, chemotherapy or radiation therapy for this. He has multiple siblings who have been diagnosed with cancer including colon, hepatic and stomach cancer. Admission Exam Per Admitting Provider See H&P Discharge Exam Constitutional: Alert HEENT: Mucous membranes moist. Lungs: Clear to auscultation, decreased, no wheezes rales or rhonchi CV: S1-S2, regular Abdomen: Soft, mild epigastric tenderness, no mass, no guarding or rigidity Extremities: No significant edema Neuro: No focal deficits Psych: Cooperative, normal mood Updated Medication List Medication Instructions Recorded Confirmed Type albuterol sulfate 90 mcg/actuation 2 puff inhalation Q6H PRN sob 10/13/23 03/03/25 History aerosol inhaler sumatriptan succinate 6 mg/0.5 mL 6 mg subcut UD PRN cluster 10/13/23 03/03/25 History subcutaneous pen injector headaches atorvastatin 10 mg tablet 10 mg PO HS 03/03/25 03/03/25 History fluticasone fur. 100 mcg-umeclid 1 inh inhalation QAM 03/03/25 03/03/25 History 62.5 mcg-vilant 25 mcg inhalat.powder (Trelegy Ellipta) omeprazole 40 mg capsule,delayed 40 mg PO DAILY #30 caps 03/03/25 Rx release Hospital Stay Data Consultations 03/03/25 11:32 ED Decision to Admit Stat 03/03/25 14:05 Consult Gastroenterology Routine Diagnostic Imagining Performed 03/03/25 09:36 CT angio chest PE protocol Stat 03/03/25 12:19 CT abd pelvis IV con only Stat Reviewed imaging, laboratory and diagnostic studies. Pertinent findings as below. CBC within normal range Electrolytes within normal range Troponin negative x 2 sets, within normal range TSH 2.53 Lyme screen positive, Lyme IgG positive, Lyme IgM negative, this is consistent with previous Lyme disease which the patient admitted to. Echocardiogram shows normal ejection fraction 60 to 65% with borderline left ventricular hypertrophy, no valvular dysfunction CTA of the chest showed no PE but did show a 2.7 x 2.3 cm nodule along the lesser curvature of the stomach with surrounding lymphadenopathy. CT of the abdomen pelvis confirms a 2.6 cm nodule along the lesser curvature of the stomach with some lymphadenopathy adjacent to the mass Pending Results Patient Have Any Pending Studies at Discharge: No Discharge Instructions Given to Patient (Per Discharging Provider) Please follow-up with Dr. Anton for endoscopic ultrasound and biopsy Consider follow-up with your back surgeon if your pain seems attributable to your chronic back issues Recommend a trial of proton pump inhibitor for some your chronic GI pain. I sent a prescription to your pharmacy for omeprazole. Total Time Total Time Spent Total Time Spent (In Minutes): 35
[2025-03-03] MEDS ORDERED: ATORVASTATIN 10 MG TAB PO SCH (21:00)
[2025-03-04] MEDS ORDERED: PNEUMOCOCCAL VACCINE (PCV20) 20-VAL CONJ-DIP CRM/PF 0.5 ML SYR IM ONE (09:00)
[2025-03-04] MEDS ORDERED: FLUTICASONE FUROATE 100MCG 14 PUFFS/INHALER INH SCH (09:00)
[2025-03-04] MEDS ORDERED: UMECLIDINIUM/VILANTEROL 62.5/25MCG 7 PUFFS/INHALER INH SCH (09:00)
[2025-03-04] MEDS ORDERED: NON-FORMULARY MEDICATION (Fluticasone-Umeclidin-Vilanter [Trelegy Ellipta] 100-62.5-25 mcg INH SCH (09:00)
--- NOTE | 2025-03-05 23:17 | Electrocardiogram Report ---
Test Reason : Blood Pressure : */* mmHG Vent. Rate : 80 BPM Atrial Rate : 80 BPM P-R Int : 152 ms QRS Dur : 90 ms QT Int : 366 ms P-R-T Axes : 49 13 16 degrees QTcB Int : 422 ms Normal sinus rhythm Normal ECG When compared with ECG of 27-Aug-2024 20:00, No significant change was found Confirmed by Dakota Chan ([id number]) on 03/05/2025 11:17:09 PM Referred By: REFERRED SELF Confirmed By: Dakota Chan
== END 2025-03-03 18:30 | disposition home or self-care (01) | DRG 312 ==
LOC: ED 09:19 → 2N 12:19 → 2W 15:37